=== PATIENT | female | born 1990 | race Hispanic/Latino ===

== ENCOUNTER 2024-12-04 14:48 | Emergency (ER) | payer SELFPAY ==
[~2024-12-04] VITALS: Ht 157.5 cm; Wt 66.2 kg
[2024-12-04 16:30] LABS: BASOPHILS % 0.1 % (0.0-1.0); EOSINOPHILS % 0.1 % (0.0-6.0); LYMPHOCYTES % 12.8 % (18.0-39.1); MONOCYTES % 5.5 % (4.4-11.3); NEUTROPHILS % 81.1 % (38.7-80.0); RED CELL DISTRIBUTION WIDTH 13.2 % (11.7-14.4)
[2024-12-04 16:39] LABS: LEUKOCYTE ESTERASE ,URINE MODERATE (NEGATIVE); PROTEIN,URINE DIPSTICK 2+ (NEGATIVE); URINE UROBILINOGEN 4 mg/dL (0.2 - 1)
[2024-12-04 16:43] LABS: INR 0.98
[2024-12-04 16:50] LABS: WBC,URINE (MAN) >50 /HPF (0-5)
[2024-12-04 16:52] LABS: EST GLOMERULAR FILTRATION RATE 118.0 ML/MIN (>=60)
[2024-12-04 18:00] VITALS: PULSE 86; RESP 16; TEMP 98.2; O2SAT 98
== END 2024-12-04 18:49 | disposition short-term general hospital (02) ==
LOC: ER 15:49
DX: O23.42 Unspecified infection of urinary tract in pregnancy, second trimester (principal); R55 Syncope and collapse
CPT/HCPCS: 36415; 80053; 81001; 85025; 85610; 85730; 86850; 86900; 87086; 87186; 93005; 99284; J0696